=== PATIENT | female | born 1970 | race Caucasian/White ===

== ENCOUNTER 2016-07-10 20:54 | Emergency (ER) | payer BC ==
[2016-07-10 21:26] LABS: HEMATOCRIT 41.6 % (36.0-48.0); HEMOGLOBIN 13.1 g/dL (12.0-16.0); MEAN CORPUS. HGB CONCENTRATION 31.4 g/dL (32.0-36.0); MEAN CORPUSCULAR HEMOGLOBIN 28.1 pg (29.0-35.0); RED BLOOD COUNT 4.65 X 10^6uL (4.20-6.10); WHITE BLOOD COUNT 15.1 X 10^3uL (3.9-10.7)
[2016-07-10 21:30] LABS: BLOOD UREA NITROGEN 57 mg/dL (7-17); CHLORIDE 105 mmol/L (98-107); CREATININE 1.6 mg/dL (0.5-1.0); EST GLOMERULAR FILTRATION RATE 37 mL/min; GLUCOSE 181 mg/dL (70-100); POTASSIUM 4.2 mmol/L (3.5-5.1); SODIUM 140 mmol/L (137-145)
[2016-07-10 21:34] LABS: BAND% (Manual) 20 % (0.0-1.0); EOSINOPHIL % (Manual) 2 % (0.0-6.0); LYMPHOCYTE % (Manual) 41 % (20.0-40.0); MONOCYTE % (Manual) 4 % (2.0-10.0); NEUTROPHIL % (Manual) 31 % (54.0-75.0)
[2016-07-10 21:35] LABS: NUCLEATED RED BLOOD CELL 1 #/100WBC (0-0); PLATELET COUNT 58 X 10^3uL (130-440); PLATELET ESTIMATE ADEQUATE
[2016-07-10 21:53] LABS: URINE MUCUS NONE SEEN (Up to 25%)
[2016-07-10 22:05] LABS: URINE AMORPHOUS SEDIMENT >50%/lpf (Up to 25%); URINE APPEARANCE CLEAR; URINE BACTERIA NONE SEEN (<10/hpf); URINE BILIRUBIN 0.5 mg/100ml (1+) (NEGATIVE); URINE BLOOD 250 Ery/uL (3+) (NEGATIVE); URINE COLOR DARK YELLOW; URINE GLUCOSE NORMAL (NEGATIVE); URINE KETONE NEGATIVE (NEGATIVE); URINE LEUKOCYTE ESTERASE NEGATIVE (NEGATIVE); URINE NITRITE NEGATIVE (NEGATIVE); URINE PROTEIN 100mg/dL (2+) (NEG - TRACE); URINE RBC 0-5/hpf (0-5/hpf); URINE SPECIFIC GRAVITY 1.015 (0.001-1.035); URINE SQUAMOUS EPITHELIAL CELL 0-5/hpf (<= 15/hpf); URINE UROBILINOGEN 2mg/dL (NEG-1mg/dL); URINE WBC 0-4/hpf (0-4/hpf)
[2016-07-10 22:06] LABS: URINE YEAST PRESENT (None Seen)
[2016-07-10 22:16] LABS: CALCIUM 7.4 mg/dL (8.4-10.2)
[2016-07-10 23:25] LABS: TROPONIN I 0.172 ng/mL (0.00-0.034)
--- NOTE | 2016-07-10 23:49 | ER NURSING DOCUMENTATION ---
Nurse's Notes [facility] Name:Jazlyn Walker Age:45 yrs Sex:Female :1970 Arrival Date:07/10/2016 Time:20:50 BedTrauma A Private MD: Diagnosis:Hypoxia Presentation: 07/10 20:53 Acuity: JERRY 2 20:54 Presenting complaint: EMS states: PT c/o SOB, recently diagnosed with Influenza A. PT rh has altered mental status, was not able to give EMS her last name and is slow to follow commands. Pt was nauseated and vomited on scene and was incontinent, which is new. Transition of care: Other HOTEL. 20:54 Method Of Arrival: EMS: 410 rh Triage Assessment: 20:50 General: Appears distressed, uncomfortable, Behavior is cooperative. Pain: Unable to rh use pain scale. Patient is disoriented. EENT: Oral mucosa is dry. Neuro: Level of Consciousness is awake, alert, Oriented to person. Cardiovascular: Capillary refill < 3 seconds Rhythm is sinus tachycardia Chest pain is denied. Respiratory: Airway is patent Respiratory effort is even, labored, Respiratory pattern is symmetrical, tachypnea Breath sounds with crackles Breath sounds with wheezes Reports shortness of breath cough that is. GI: Abdomen is obese, Reports nausea, vomiting. : Reports incontinence. Derm: Skin is intact, is healthy with good turgor, Skin is pale. Historical: - Allergies: Levaquin; Tramadol HCl; - Home Meds: 1. None - PMHx: Unable to obtain; - PSHx: Unable to obtain; - Tetanus: unknown. - Ebola Screening: : Patient negative for fever greater than or equal to 101.5 degrees Fahrenheit, and additional compatible Ebola Virus Disease symptoms. - Immunization history: Flu Vaccine unknown. - Social history: Smoking status: unknown if patient ever smoked tobacco. Screenin:01 Infectious Disease Risk Unable to Obtain. Abuse screen: Unable to Obtain. Nutritional rh screening: Unable to Obtain. Assessment: 21:00 See Triage Assessment done by same RN. 23:35 Reassessment: Patient states symptoms have improved. Neuro: Level of Consciousness is rh awake, alert, obeys commands, Oriented to person, place, event. Vital Signs: 20:59 BP 192 / 111; Pulse 123; Resp 26; Temp 101.1; Pulse Ox 98% on 10% Nebulizer; rh 21:14 BP 180 / 99; Pulse 122; Resp 24; Pulse Ox 92% on 4 lpm NC; rh 21:59 BP 174 / 101; Pulse 119; Resp 24; Temp 99.2(TE); Pulse Ox 90% on 4 lpm NC; rh 22:59 BP 171 / 104; Pulse 114; Resp 20; Pulse Ox 91% on 5 lpm NC; rh 23:34 BP 175 / 99; Pulse 116; Resp 22; Pulse Ox 91% on 5 lpm NC; rh 21:59 Pt is non compliant with the nasal cannula at times. rh Ever Coma Score: 21:12 Eye Response: spontaneous(4). Verbal Response: confused(4). Motor Response: obeys cd commands(6). Total: 14. ED Course: 20:50 Patient arrived in ED. ma1 20:50 Oxygen Oxygen administration via nasal cannula @ 4L/min. rh 20:50 Maintain field IV. Dressing intact. Site clean & dry. Gauge & site: 22 L HAND . rh 20:50 Notified ED Physician of patient's arrival and chief complaint. Dr. Deluna notified. rh 20:50 surveillance monitor on. Pulse ox on. NIBP on. rh 20:51 Erasmo Deluna MD is Attending Physician. cd 20:53 Meliza Diez is Primary Nurse. rh 20:53 Triage completed. rh 20:54 Attending Physician role handed off by Erasmo Deluna MD sc 20:54 Suresh Mejia MD is Attending Physician. sc 20:55 First set of blood cultures drawn Second set of blood cultures drawn by Lab staff EKG rh done. (by ED staff). Reviewed by Suresh Mejia MD. 21:00 Port Xray Completed. tt 21:01 Valuables Remains with patient Patient has correct armband on for positive rh identification. Placed in gown. Bed in low position. Call light in reach. Side rails up X 1. 21:02 EKG attached rh 21:05 Inserted peripheral IV: 20 gauge in left forearm and blood collected. rh 21:25 Woodard cath inserted 16 Fr. Balloon inflated. To gravity drainage. Urine specimen rh collected. returned trista urine. Patient tolerated well. 23:[address] Mejia notified. Notified TROPONIN IS CRITICAL. rh Administered Medications: 20:44 Drug: Nitroglycerin 0.4 mg; Route: Sublingual; rh 21:10 Follow up: Response: No adverse reaction rh 20:45 Drug: DuoNeb (Albuterol 2.5 mg, Atrovent 0.5 mg); 3 ml; Route: Nebulizer; rh 21:10 Follow up: Response: Wheezing diminished rh 21:00 Drug: Zofran 4 mg; Route: IVP; Infused Over: 2 mins; Site: left hand; rh 21:10 Follow up: Response: No adverse reaction rh 21:01 CANCELLED (Physician Discretion): Acetaminophen 975 mg PO once cd 21:01 CANCELLED (Physician Discretion): Ibuprofen 600 mg PO once cd 21:07 Drug: Ofirmev ; MAX of 1000 mg, give 20 mg/kg; Route: IV; Rate: calculated rate; rh Infused Over: 15 mins; Site: left hand; 21:22 Follow up: IV Status: Completed infusion; IV Intake: 100ml rh 21:53 Drug: Rocephin 1 grams; Route: IVPB; Site: left hand; rh 22:23 Follow up: IV Status: Completed infusion; IV Intake: 100ml rh 22:32 Drug: Zithromax 500 mg; Route: IVPB; Site: left hand; rh 23:29 Follow up: IV Status: Completed infusion; IV Intake: 250ml rh 23:30 Drug: Aspirin 81 mg, 4 tabs, total of 324 mg - Aspirin 81 mg; Route: PO; rh 23:34 Follow up: Response: No adverse reaction rh Intake: 21:22 IV: 100ml; Total: 100ml. rh 22:23 IV: 100ml; Total: 200ml. rh 23:29 IV: 250ml; Total: 450ml. rh Output: 23:24 Urine: 650ml (Woodard); Total: 650ml. rh Outcome: 23:09 ER care complete, transfer ordered by MD. del rosario 23:36 Transferred: Patient will be transferred to: [facility]. Facility rh Acceptance Time: July 10, 2016 at 23:00 Patient's face sheet was faxed to accepting facility. Face Sheet included patient's name, address, age, gender, contact information and insurance information. Patient will be transported by: [facility]. Report called to: ROSA Mckeon RN AT [facility] ROOM 2102 Nurse and Physician Charting and Notes were sent to Accepting Facility. All tests and/or procedures with results, if applicable, were sent to accepting facility. 23:36 Condition: stable 23:36 Instructed on need for transfer 23:48 Patient left the ED. rh Signatures: Suresh Mejia MD MD sc Daley, Chris, MD MD cd Terriere, Tracy tt Hofsess, Rachel Cornelia Zamarripa
--- NOTE | 2016-07-10 23:49 | ER PHYSICIAN DOCUMENTATION ---
Physician Documentation [facility] Name:Jazlyn Walker Age:45 yrs Sex:Female :1970 Arrival Date:07/10/2016 Time:20:50 BedTrauma A Private MD: Suresh Pope Disposition: 07/10 23:08 Critical Care: not applicable. ak Disposition: 07/10/16 23:09 Transfer ordered to [facility]. Diagnosis is Hypoxia. - Reason for transfer: Higher level of care. - Accepting physician is [facility] hospitalist. - Condition is Critical. - Problem is new. - Symptoms have improved. COBRA Form completed? Yes Transfer - Mode of Transportation Ambulance HPI: 21:06 This 45 yrs old Female presents to ER via EMS with complaints of Altered cd Mental Status & Dyspnea. 21:06 The patient presents with confusion, decreased responsiveness, disorientation, to cd place, to time. Onset: The symptom(s)/episode began/occurred 5 day(s) ago, and became worse today. Possible causes: sepsis, the patient has had a history of a fever, Hx of recent Influenza A diagnosed 4 - 5 days ago, placed on Tamiflu, but has not taken her meds.. Associated signs and symptoms: Pertinent positives: agitation, confusion, nausea, shortness of breath, vomiting, weakness, fever. Current symptoms: In the emergency department the patient's symptoms have improved, mildly, after a Duoneb en-route. Patient's baseline: unknown. It is unknown whether or not the patient has had similar symptoms in the past. Patient denies Heart Disease, DM, Asthma, Overdose, Narcotic Use, PE's, recent Pneumonia.. Historical: - Allergies: Levaquin; Tramadol HCl; - Home Meds: 1. None - PMHx: Unable to obtain; - PSHx: Unable to obtain; - Tetanus: unknown. - Ebola Screening: : Patient negative for fever greater than or equal to 101.5 degrees Fahrenheit, and additional compatible Ebola Virus Disease symptoms. - Immunization history: Flu Vaccine unknown. - Social history: Smoking status: unknown if patient ever smoked tobacco. ROS: 21:10 Constitutional: Positive for fatigue, fever, malaise, poor PO intake. cd 21:10 Cardiovascular: Positive for palpitations, Negative for chest pain, edema. 21:10 Respiratory: Positive for cough, with no reported sputum, orthopnea, shortness of breath, wheezing, Negative for hemoptysis. 21:10 Abdomen/GI: Positive for nausea, vomiting, anorexia. 21:10 Neuro: Positive for altered mental status. 21:10 Unable to obtain ROS due to altered mental status, patient being uncooperative, Patient is confused. Exam: 21:12 Head/Face: Normocephalic, atraumatic. cd Eyes: Pupils equal round and reactive to light, extra-ocular motions intact. Lids and lashes normal. Conjunctiva and sclera are non-icteric and not injected. Cornea within normal limits. Periorbital areas with no swelling, redness, or edema. Neck: Trachea midline, no thyromegaly or masses palpated, and no cervical lymphadenopathy. Supple, full range of motion without nuchal rigidity, or vertebral point tenderness. No Meningismus. Back: No spinal tenderness. No costovertebral tenderness. Full range of motion. 21:12 MS/ Extremity: Pulses equal, no cyanosis. Neurovascular intact. Full, normal range cd of motion. 21:12 Constitutional: The patient appears awake, non-diaphoretic, well developed, well nourished, febrile, lethargic, listless, obese, in obvious distress, moderately distressed, obviously ill. 21:12 ENT: Mouth: Oral mucosa: dry. 21:12 Cardiovascular: Rate: tachycardic, actual rate is 123 bpm, Rhythm: regular, Pulses: no pulse deficits are appreciated, Heart sounds: normal, Edema: is not appreciated. 21:12 Respiratory: mild respiratory distress is noted, Respirations: labored breathing, that is mild, intercostal retractions, are absent, shallow respirations, that is moderate, tachypnea, that is moderate, Breath sounds: rales, that are severe, are scattered, rhonchi, that are mild, wheezing, that is moderate, is scattered, decreased breath sounds, that are moderate, are located in both bases. 21:12 Abdomen/GI: Inspection: abdomen appears normal, Palpation: abdomen is soft and non-tender. 21:12 Neuro: Orientation: to person, Mentation: lucid, slow to respond, confused, Cranial nerves: CN II- XII are normal as tested, Motor: moves all fours, Sensation: unable to test. Vital Signs: 20:59 BP 192 / 111; Pulse 123; Resp 26; Temp 101.1; Pulse Ox 98% on 10% Nebulizer; rh 21:14 BP 180 / 99; Pulse 122; Resp 24; Pulse Ox 92% on 4 lpm NC; rh 21:59 BP 174 / 101; Pulse 119; Resp 24; Temp 99.2(TE); Pulse Ox 90% on 4 lpm NC; rh 22:59 BP 171 / 104; Pulse 114; Resp 20; Pulse Ox 91% on 5 lpm NC; rh 23:34 BP 175 / 99; Pulse 116; Resp 22; Pulse Ox 91% on 5 lpm NC; rh 21:59 Pt is non compliant with the nasal cannula at times. Ever Coma Score: 21:12 Eye Response: spontaneous(4). Verbal Response: confused(4). Motor Response: obeys cd commands(6). Total: 14. MDM: 20:51 Patient medically screened. cd 20:56 Data interpreted: Pulse oximetry: on 5L(s) per nasal cannula, is 92 %. Interpretation: cd acceptable. 21:02 EKG attached 21:14 Differential Diagnosis: electrolyte abnormality, alcohol intoxication, overdose, cd pneumonia, sepsis, UTI, volume depletion, Pulmonary Edema, PE, Severe Influenza with Pneumonia. 21:16 Data reviewed: vital signs, nurses notes, EMS record, and as a result, I will continue cd to observe the patient, order radiologic studie(s), plain X-ray(s), administer antibiotics Rocephin, Zithromax, administer IV fluids, NS bolus, NS maintenence, prescribe pain medication, acetaminophen. 23:08 Counseling: I had a detailed discussion with the patient and/or guardian regarding: the ak historical points, exam findings, and any diagnostic results supporting the discharge/admit diagnosis, lab results, radiology results, the need to transfer to another facility. Medication response: The patient's symptoms have improved. ED course: altered mental status improved. 23:10 Physician consultation: Dr. Mills was called at 23:12, was contacted at 23:12, ak regarding patient's condition. 07/10 21:28 Order name: CBC W/ MANUAL DIFFERENTIAL; Complete Time: 22:13 EDMS 07/10 22:11 Interpretation: Abnormal: WHITE BLOOD COUNT 15.1; BAND% (Manual) 20. sc 07/10 21:31 Order name: BASIC METABOLIC PANEL; Complete Time: 22:13 [facility] 07/10 22:11 Interpretation: Abnormal: BLOOD UREA NITROGEN 57; CREATININE 1.6. ak 07/10 22:03 Order name: LACTATE; Complete Time: 22:13 [facility] 07/10 22:11 Interpretation: Normal. ak 07/10 22:07 Order name: UA W/ MICRO -CULTURE IF IND; Complete Time: 22:13 [facility] 07/10 22:12 Interpretation: Abnormal: URINE COLOR DARK YELLOW; URINE PROTEIN 100mg/dL (2+); URINE ak BLOOD 250 Hema/uL (3+); URINE AMORPHOUS SEDIMENT >50%/lpf. 07/10 22:15 Order name: BNP,NT-PRO [facility] 07/10 22:58 Interpretation: Abnormal. ak 07/10 22:17 Order name: CALCIUM [facility] 07/10 22:58 Interpretation: Normal. ak 07/10 22:29 Order name: DDIMER [facility] 07/10 22:58 Interpretation: Abnormal. ak 07/10 23:25 Order name: TROPONIN I [facility] 07/10 20:53 Order name: I & O; Complete Time: 20:58 cd 07/10 20:53 Order name: Oxygen; Complete Time: 20:58 cd 07/10 20:53 Order name: Place Patient On Monitor; Complete Time: 20:58 cd 07/10 20:53 Order name: Pulse Ox Continuous; Complete Time: 20:58 cd 07/10 20:53 Order name: 12-lead EKG; Complete Time: 20:59 cd 07/10 21:21 Order name: Woodard; Complete Time: 21:29 07/10 23:37 Order name: Iv Saline Lock; Complete Time: 23:37 rh Dispensed Medications: 20:44 Drug: Nitroglycerin 0.4 mg; Route: Sublingual; rh 21:10 Follow up: Response: No adverse reaction rh 20:45 Drug: DuoNeb (Albuterol 2.5 mg, Atrovent 0.5 mg); 3 ml; Route: Nebulizer; rh 21:10 Follow up: Response: Wheezing diminished rh 21:00 Drug: Zofran 4 mg; Route: IVP; Infused Over: 2 mins; Site: left hand; rh 21:10 Follow up: Response: No adverse reaction rh 21:01 CANCELLED (Physician Discretion): Acetaminophen 975 mg PO once cd 21:01 CANCELLED (Physician Discretion): Ibuprofen 600 mg PO once cd 21:07 Drug: Ofirmev ; MAX of 1000 mg, give 20 mg/kg; Route: IV; Rate: calculated rate; rh Infused Over: 15 mins; Site: left hand; 21:22 Follow up: IV Status: Completed infusion; IV Intake: 100ml rh 21:53 Drug: Rocephin 1 grams; Route: IVPB; Site: left hand; rh 22:23 Follow up: IV Status: Completed infusion; IV Intake: 100ml rh 22:32 Drug: Zithromax 500 mg; Route: IVPB; Site: left hand; rh 23:29 Follow up: IV Status: Completed infusion; IV Intake: 250ml rh 23:30 Drug: Aspirin 81 mg, 4 tabs, total of 324 mg - Aspirin 81 mg; Route: PO; rh 23:34 Follow up: Response: No adverse reaction rh Signatures: Suresh Mejia MD MD sc Daley, Chris, MD MD cd Hofsess, Rachel rh
--- NOTE | 2016-07-12 08:39 | RADIOLOGY REPORT ---
A limited single portable view of the chest, without prior films for comparison , demonstrates a limited degree of inspiration. Cardiac silhouette is enlarged. The pulmonary vasculature is unremarkable. Faint nonspecific mixed patchy densities are seen throughout both lung doshi. Infiltrate versus edema. No fluid or pneumothorax is seen. IMPRESSION: 1. Enlargement of the cardiac silhouette. 2. Nonspecific mixed densities throughout both lung doshi. Infectious versus edema. MTDD
== END 2016-07-10 23:49 | disposition short-term general hospital (02) ==
LOC: ER 20:54
DX: R09.02 Hypoxemia (principal); R41.82 Altered mental status, unspecified; R11.2 Nausea with vomiting, unspecified; R06.02 Shortness of breath; R05 Cough; R00.0 Tachycardia, unspecified; E86.0 Dehydration; R53.81 Other malaise; R53.83 Other fatigue; R50.9 Fever, unspecified; R06.82 Tachypnea, not elsewhere classified; R06.01 Orthopnea; R79.1 Abnormal coagulation profile; E83.51 Hypocalcemia; R74.8 Abnormal levels of other serum enzymes; R73.9 Hyperglycemia, unspecified; Z99.89 Dependence on other enabling machines and devices; Z74.3 Need for continuous supervision; Z99.81 Dependence on supplemental oxygen
CPT/HCPCS: 36415; 71010; 80048; 81001; 82310; 83605; 83880; 84484; 85007; 85027; 85379; 87040; A0425; A0427